=== PATIENT | female | born 1960 | race Caucasian/White ===

== ENCOUNTER → 2016-11-11 08:36 | Outpatient (CLI) | payer BC | END | disposition home or self-care (01) | LOC: D.US 08:36 | DX: R10.13 Epigastric pain (principal); R10.11 Right upper quadrant pain ==

== ENCOUNTER → 2019-09-07 09:47 | Outpatient (CLI) | payer MEDICAID ==
--- NOTE | 2019-09-08 14:13 | EC ---
PATIENT:PRADEEP JOHN DATE OF SERVICE: 09/07/19 SEX: F MEDICAL RECORD: [id number] DATE OF : 58 LOCATION:[facility] AGE OF PATIENT: 59 ADMISSION DATE: 09/07/19 REFERRING PHYSICIAN: INTERPRETING PHYSICIAN: RICK REID MD ECHOCARDIOGRAM REPORT ECHO CHARGES 4 ECHO COMPLETE Date: 09/07/19 CLINICAL DIAGNOSIS: MR/TR/TACHYCARDIA/PALPITATIONS ECHOCARDIOGRAPHIC MEASUREMENTS (adult normal given) AC root (d.<3.7cm) 2.6 cm LV Septum d (<1.2 cm> 0.9 cm Valve Excursion 1.1 cm LV Septum (systole) 1.2 cm Left Atria (s.<4.0cm> 3.0 cm LVPW d(<1.2cm) 0.8 cm RV (d.<2.3cm) 1.9 cm LVPW (sytole) 1.2 cm LV diastole(<5.6CM) 4.0 cm MV E-F(>70mm/sec) cm LV systole 2.6 cm LVOT Diameter 1.8 cm MV exc.(>10mm) cm Est.ejection fraction (50-75%) % DOPPLER: LVIT cm/sec A 59.0 cm/sec E 48.0 cm/sec LA cm/sec RVSP 30.0 mmHg LVOT 73.0 cm/sec AOP1/2T m/s Asc. Ao 104 cm/sec RVOT 51.0 cm/sec RA cm/sec PA 90.0 cm/sec AV Gradient Peak 4.3 mmHg AV Mean 2.2 mmHg AV Area 2.0 cm MV Gradient Peak 1.9 mmHg MV Mean 0.65 mmHg MV Area cm COMMENTS: OP - [employer] Supervisor: 1 ROSMERY LUCITA Carpenter Streetcar: 3 Dr. Choi TAPE# PACS Pericardial Effusion N DATE OF SERVICE: Adequate 2-D echo, Color-Flow and Spectral Doppler, and M-mode No LVH. LV internal dimension is normal. Wall motion is normal. EF is greater than or equal to 55%. Aortic valve is tricuspid. No evidence of stenosis by Doppler interrogation. Left atrium is normal. Mitral valve shows no prolapse. Physiologic MR only. Right-sided chamber is grossly normal. Physiologic TR only. ECHOCARDIOGRAM REPORT [id number] PRADEEP JOHN TRANSINT:[id number] Voice Confirmation ID: [id number] DOCUMENT ID: [id number] RICK REID MD at [id number] CC: [id number] DICTATION DATE: 09/07/19 1338 [employer] SUPERVISOR: 09/07/19 1820 [facility] CLI 09/07/19 [place] [id number] [place] [id number]
== END | disposition home or self-care (01) ==
LOC: D.HCCECHO 08-30 09:00
PROVIDERS: ATTEND Internal Medicine Interventional Cardiology
DX: I08.1 Rheumatic disorders of both mitral and tricuspid valves (principal)